=== PATIENT | male | born 1990 | race African-American/Black ===

== ENCOUNTER 2017-04-16 03:17 | Emergency (ER) | payer OTHER ==
[~2017-04-16] VITALS: Ht 188 cm; Wt 60.4 kg
[2017-04-16 04:42] VITALS: BP 136/100
== END 2017-04-16 04:43 | disposition home or self-care (01) ==
LOC: EME 03:17
PROC: 0HQ1XZZ Repair Face Skin, External Approach (ICD-10-PCS; principal; 2017-04-16)
DX: S01.411A Laceration without foreign body of right cheek and temporomandibular area, initial encounter (principal); F10.129 Alcohol abuse with intoxication, unspecified; Y00.XXXA Assault by blunt object, initial encounter; Y07.9 Unspecified perpetrator of maltreatment and neglect
CPT/HCPCS: 99281; 99283

== ENCOUNTER 2017-04-23 07:46 | Emergency (ER) | payer OTHER ==
[~2017-04-23] VITALS: Ht 185.4 cm; Wt 60.0 kg
[2017-04-23] MEDS ORDERED: MOTRIN800 MG PO (09:09)
[2017-04-23 09:15] VITALS: BP 133/83
== END 2017-04-23 09:18 | disposition home or self-care (01) ==
LOC: EME 07:46
DX: S01.411D Laceration without foreign body of right cheek and temporomandibular area, subsequent encounter (principal); S00.83XA Contusion of other part of head, initial encounter; Y00.XXXA Assault by blunt object, initial encounter; Z48.02 Encounter for removal of sutures; F17.200 Nicotine dependence, unspecified, uncomplicated
CPT/HCPCS: 70110; 99281; 99283